=== PATIENT | male | born 1985 | race Caucasian/White ===

== ENCOUNTER 2018-10-08 23:14 | Emergency (ER) | payer OTHER ==
[~2018-10-08] VITALS: Ht 185.4 cm; Wt 91.6 kg
--- NOTE | 2018-10-08 23:55 | NUR ---
PT PRESENTED TO THE ER WITH A C/O RT FOREARM PAIN/INJURY S/P TRIP AND FALL WHILE RUNNING.
[2018-10-09] MEDS ORDERED: HYDROCODONE/APAP 5/325MG 1 EACH TABLET PO ONE
[2018-10-09] MEDS ORDERED: HYDROCODONE/APAP 5/325MG 1 EACH TABLET ONE (00:07)
--- NOTE | 2018-10-09 00:27 | NUR ---
XRAY IN PROGRESS AT THE BEDSIDE.
--- NOTE | 2018-10-09 01:01 | NUR ---
CALLED [facility] RE: XRAY
--- NOTE | 2018-10-09 02:15 | NUR ---
PT IS REC'ING A SUGAR TONG ORTHO SPLINT AND A SLING.
--- NOTE | 2018-10-09 02:50 | NUR ---
Patient discharged to home in stable condition. Written and verbal after care instructions given. Patient verbalizes understanding of instruction. PT TO F/U WITH ORTHOPEDIC MD.
[2018-10-09 02:51] VITALS: BP 116/61
== END 2018-10-09 02:50 | disposition home or self-care (01) ==
LOC: ER 23:18
DX: S52.131A Displaced fracture of neck of right radius, initial encounter for closed fracture (principal); W01.0XXA Fall on same level from slipping, tripping and stumbling without subsequent striking against object, initial encounter; Y93.89 Activity, other specified; Y92.89 Other specified places as the place of occurrence of the external cause; Y99.8 Other external cause status
CPT/HCPCS: 73080-TC